=== PATIENT | male | born 1970 | race Caucasian/White ===

== ENCOUNTER 2016-08-13 21:08 | Emergency (ER) | payer OTHER ==
[~2016-08-13 21:08] MED LIST: Sterile Water Irrigation 250 ML BOT ONE
[2016-08-13] MEDS ORDERED: Lidocaine 2% w/Epinephrine 1:200K 20 ML VIAL ONE (21:24)
[2016-08-13] MEDS ORDERED: Cephalexin 500 MG CAP ONE (22:27)
[2016-08-13] MEDS ORDERED: Triple Antibiotic Oint 1 GM Packet ONE (22:27)
[2016-08-13] MEDS ORDERED: HYDROcodone/Acetaminophen 10/325 mg Tablet ONE (22:27)
== END 2016-08-13 22:40 | disposition home or self-care (01) ==
LOC: MADERS 21:08
DX: S51.011A Laceration without foreign body of right elbow, initial encounter (principal); I10 Essential (primary) hypertension; F17.210 Nicotine dependence, cigarettes, uncomplicated; Z79.899 Other long term (current) drug therapy; W25.XXXA Contact with sharp glass, initial encounter
CPT/HCPCS: 12005

== ENCOUNTER 2016-09-20 01:44 | Emergency (ER) | payer OTHER ==
[2016-09-20] MEDS ORDERED: HYDROcodone/Acetaminophen 5/325 mg Tablet ONE (02:19)
--- NOTE | 2016-09-20 08:47 | RAD ---
3 VIEWS LEFT ANKLE: Date: 09/20/16 COMPARISON: None. HISTORY: Left ankle pain and swelling. FINDINGS: Three views of the left ankle show a fracture of the lateral malleolus with overlying lateral soft t issue swelling. No other fractures are seen. IMPRESSION: Lateral malleolus fracture. POS: [facility]
== END 2016-09-20 02:49 | disposition home or self-care (01) ==
LOC: MADERS 01:44
DX: S82.65XA Nondisplaced fracture of lateral malleolus of left fibula, initial encounter for closed fracture (principal); S90.512A Abrasion, left ankle, initial encounter; S90.819A Abrasion, unspecified foot, initial encounter; I10 Essential (primary) hypertension; F17.210 Nicotine dependence, cigarettes, uncomplicated; Z79.899 Other long term (current) drug therapy; X58.XXXA Exposure to other specified factors, initial encounter
CPT/HCPCS: 29515